=== PATIENT | female | born 1980 | race Caucasian/White ===

== ENCOUNTER 2022-05-01 16:20 | Emergency (ER) | payer OTHER | END 2022-05-01 19:55 | disposition home or self-care (01) | LOC: ER1 16:20 | DX: F10.129 Alcohol abuse with intoxication, unspecified (principal); R05.9 Cough, unspecified; F17.200 Nicotine dependence, unspecified, uncomplicated; Z90.89 Acquired absence of other organs; Z20.822 Contact with and (suspected) exposure to COVID-19 | CPT/HCPCS: 81001; 84703; 87077; 87086; 87186; 99283; U0002 ==